=== PATIENT | female | born 1995 | race African-American/Black ===

== ENCOUNTER 2016-09-27 21:22 | Emergency (ER) | payer BC ==
[~2016-09-27] VITALS: Ht 152.4 cm; Wt 55.9 kg
[~2016-09-27 21:22] MED LIST: ANTIVERT25 MG PO; ANUSOL HC,ANUCO25 MG PR; MIRALAX255 GM PO; MUCINEX D ER T1 EACH PO; NASONEX17 GM BOTH NARES; PREDNISONE50 MG PO
[2016-09-27 21:59] LABS: EOSINOPHIL (%) 0.2 % (0-5); HEMATOCRIT 42.2 % (36.0-46.0); IMMATURE GRANULOCYTE (%) 0.2 % (0.0-0.7); LYMPHOCYTE COUNT 2.2 K/uL (1.0-2.8); MCH 31.9 PG (29.0-34.0); MCHC 33.6 G/DL (30.0-36.0); MCV 94.8 FL (83-99); MEAN PLAT.VOLUME 10.3 uM^3 (9.5-12.4); MONOCYTE (%) 8.1 % (3-12); MONOCYTE COUNT 0.4 K/uL (0-0.8); NEUTROPHIL (%) 43.6 % (45-76); PLATELET COUNT 241 K/uL (156-360); RBC DIS.WIDTH-CV 12.5 % (11.8-14.6); RBC DIS.WIDTH-SD 43.4 % (39-53); RED BLOOD COUNT 4.45 M/uL (3.80-5.20); WHITE BLOOD COUNT 4.6 K/uL (4.1-10.2)
[2016-09-27 22:10] LABS: CHLORIDE 106 mEq/L (99-109); POTASSIUM 4.3 mEq/L (3.7-5.4); SODIUM 139 mEq/L (136-147)
[2016-09-27 22:12] LABS: GLUCOSE 101 mg/dL (70-99)
[2016-09-27 22:13] LABS: ANION GAP 11 MEQ/L (2-14)
[2016-09-27 22:16] LABS: GFR ESTIMATE (CALCULATED) > 59 mL/min/
[2016-09-27 22:17] LABS: UREA NITROGEN (BUN) 16 mg/dL (9-23)
[2016-09-27 22:24] LABS: QUANTITATIVE HCG < 4.0 MIU/ML
[2016-09-28] MEDS ORDERED: NORCO 5/3251 TABLET PO (01:24)
[2016-09-28] MEDS ORDERED: DOXYCYCLINE HY100 MG PO (01:24)
[2016-09-28 01:32] VITALS: BP 128/71
[2016-09-28 13:29] LABS: CHLAMYDIA TRACHOMATIS NEGATIVE; NEISSERIA GONORRHOEAE NEGATIVE
== END 2016-09-28 01:33 | disposition home or self-care (01) ==
LOC: EME 21:22
PROVIDERS: Physician Assistant
DX: R10.2 Pelvic and perineal pain (principal); N93.9 Abnormal uterine and vaginal bleeding, unspecified; F17.200 Nicotine dependence, unspecified, uncomplicated
CPT/HCPCS: 76856; 80048; 84702; 85025; 86900; 86901; 87210; 87491; 87591; 99281; 99284; J0696; J2270

== ENCOUNTER 2016-11-01 18:34 | Emergency (ER) | payer BC ==
[~2016-11-01] VITALS: Ht 152.4 cm; Wt 57.5 kg
[~2016-11-01 18:34] MED LIST changes: +DOXYCYCLINE HY100 MG PO; +NORCO 5/3251 TABLET PO
[2016-11-01 19:14] LABS: ADD MIUA? YES; BILIRUBIN NEGATIVE; BLOOD NEGATIVE; COLOR AMBER ((YELLOW)); GLUCOSE (STRIP) NEGATIVE; KETONES 5; LEUKOCYTES NEGATIVE; NITRITE NEGATIVE; PROTEIN (STRIP) NEGATIVE; SPECIFIC GRAVITY 1.028 (1.000-1.030); UROBILINOGEN 0.2 MG/DL (0.2-1.0)
[2016-11-01 19:17] LABS: BACTERIA NONE SEEN /HPF; EPITHELIAL CELLS 1+ /HPF; MUCUS 1+ /LPF; RED BLOOD CELLS 0-5 /HPF (0-5); UCUL ADDED? NO; WHITE BLOOD CELLS 0-5 /HPF (0-5)
[2016-11-01 19:32] LABS: HEMATOCRIT 40.6 % (36.0-46.0); MCH 31.9 PG (29.0-34.0); MEAN PLAT.VOLUME 10.1 uM^3 (9.5-12.4); PLATELET COUNT 250 K/uL (156-360); RBC DIS.WIDTH-CV 12.1 % (11.8-14.6); RBC DIS.WIDTH-SD 42.5 % (39-53); RED BLOOD COUNT 4.32 M/uL (3.80-5.20); WHITE BLOOD COUNT 4.3 K/uL (4.1-10.2)
[2016-11-01 19:44] LABS: CHLORIDE 106 mEq/L (99-109); POTASSIUM 4.3 mEq/L (3.7-5.4); SODIUM 137 mEq/L (136-147)
[2016-11-01 19:46] LABS: GLUCOSE 79 mg/dL (70-99)
[2016-11-01 19:47] LABS: ANION GAP 9 MEQ/L (2-14)
[2016-11-01 19:49] LABS: GFR ESTIMATE (CALCULATED) > 59 mL/min/
[2016-11-01 19:50] LABS: UREA NITROGEN (BUN) 15 mg/dL (9-23)
[2016-11-01 20:00] LABS: QUANTITATIVE HCG 745.7 MIU/ML
[2016-11-01 22:08] VITALS: BP 126/82
== END 2016-11-01 22:09 | disposition home or self-care (01) ==
LOC: EME 18:34
PROVIDERS: Physician Assistant
DX: O20.0 Threatened abortion (principal); O99.331 Smoking (tobacco) complicating pregnancy, first trimester; F17.200 Nicotine dependence, unspecified, uncomplicated; Z3A.01 Less than 8 weeks gestation of pregnancy
CPT/HCPCS: 76801; 80048; 81003; 84702; 85027; 86900; 86901; 99281; 99284